=== PATIENT | female | born 1990 | race African-American/Black ===

== ENCOUNTER 2020-04-07 14:10 | Observation (INO) | payer OTHER ==
[~2020-04-07] VITALS: Ht 167.6 cm; Wt 96.6 kg
[2020-04-07 14:35] VITALS: BP 117/62
[2020-04-07] MEDS ORDERED: PREN-153 PO (15:43)
[2020-04-07] MEDS ORDERED: ALBU0.5N2 IN (15:43)
[2020-04-07] MEDS ORDERED: LACTATED RINGER'S 2,000 ML IV ONE (16:30)
[2020-04-07] MEDS: TERBUTALINE SULFATE 1 MG/ML 1ML VIAL SC SCH ×2 (17:45→19:39)
== END 2020-04-07 21:24 | disposition home or self-care (01) | DRG 833 ==
LOC: ER 14:10 → LDRP 15:10
PROVIDERS: ADMIT Obstetrics & Gynecology; ATTEND Obstetrics & Gynecology
DX: O9A.213 Injury, poisoning and certain other consequences of external causes complicating pregnancy, third trimester (principal); M54.5 Low back pain; O99.89 Other specified diseases and conditions complicating pregnancy, childbirth and the puerperium; M19.90 Unspecified osteoarthritis, unspecified site; V49.40XA Driver injured in collision with unspecified motor vehicles in traffic accident, initial encounter; Y93.89 Activity, other specified; Y92.410 Unspecified street and highway as the place of occurrence of the external cause; Z3A.31 31 weeks gestation of pregnancy
CPT/HCPCS: 59025; 76815; 81002; 94760; 96360; 96361; 96372; 99284; G0378; J3105